=== PATIENT | female | born 1990 | race African-American/Black ===

== ENCOUNTER 2023-05-03 17:24 | Emergency (ER) | payer OTHER ==
[~2023-05-03] VITALS: Ht 160 cm; Wt 87.1 kg
[2023-05-03] MEDS ORDERED: AMLODIPINE BESYL5 MG PO (18:24)
== END 2023-05-03 20:54 | disposition home or self-care (01) ==
LOC: ER 17:24
DX: K29.70 Gastritis, unspecified, without bleeding (principal); Z91.013 Allergy to seafood; Z88.8 Allergy status to other drugs, medicaments and biological substances